=== PATIENT | female | born 1980 | race Caucasian/White ===

== ENCOUNTER → 2025-04-10 | Outpatient (CLI) | payer OTHER, SELFPAY ==
--- NOTE | 2025-04-10 15:00 | XR_ITS ---
Examination: MRI cervical spine without intravenous contrast Date and time of exam: April 10, 2025, 1520 hours, comparison March 31, 2021 Technique: Multiple axial and sagittal sections of the cervical spine to been obtained. T2 weighted sagittal sections, TR 3, 270, TE 117 T1-weighted sagittal sections, TR 500, TE 11 T1-weighted axial sections, TR 607, TE 12, axial sections TR 18, TE 27 and T2 weighted transverse sections, TR 3920, TE 122. Findings: Magnetic susceptibility artifact at the level of surgery C5-C6 There appears to be retrodisplacement of the C5 vertebral body relative to the C6 vertebral body at least 5 mm indenting the cervical cord The axial images are severely degraded at this level Diffuse cervical disc desiccation IMPRESSION: Recommend CT scan cervical spine without contrast follow-up to confirm 5 mm retrodisplacement C5 relative to C6, producing significant spinal stenosis
--- NOTE | 2025-04-10 15:58 | XR_ITS ---
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
== END | disposition home or self-care (01) ==
LOC: SMRI 15:00
PROVIDERS: PCP Neurological Surgery; Referring Provider Neurological Surgery; Visit Provider Neurological Surgery
DX: M50.322 Other cervical disc degeneration at C5-C6 level (principal); M48.02 Spinal stenosis, cervical region; S19.9XXS Unspecified injury of neck, sequela; X58.XXXS Exposure to other specified factors, sequela
CPT/HCPCS: 72050; 72141